=== PATIENT | male | born 1940 | race Caucasian/White ===

== ENCOUNTER 2017-03-05 11:23 | Emergency (ER) | payer OTHER ==
[~2017-03-05] VITALS: Ht 195.6 cm; Wt 43.1 kg
[2017-03-05 12:17] LABS: EOSINOPHIL (%) 0.4 % (0-5); HEMATOCRIT 35.9 % (38.0-50.0); IMMATURE GRANULOCYTE (%) 0.2 % (0.0-0.7); INSTRUMENT ABS NEUTROPHIL CT 2.8 K/uL; LYMPHOCYTE COUNT 1.5 K/uL (1.0-2.8); MCH 31.3 PG (29.0-34.0); MCHC 33.7 G/DL (30.0-36.0); MEAN PLAT.VOLUME 10.7 uM^3 (9.0-12.4); MONOCYTE (%) 14.2 % (3-12); MONOCYTE COUNT 0.7 K/uL (0-0.8); NEUTROPHIL (%) 54.8 % (45-76); NEUTROPHIL COUNT 2.8 K/uL (1.8-6.4); PLATELET COUNT 180 K/uL (156-360); RBC DIS.WIDTH-CV 13.3 % (11.8-14.6); RBC DIS.WIDTH-SD 45.5 % (39-53); RED BLOOD COUNT 3.86 M/uL (4.00-5.50); WHITE BLOOD COUNT 5.1 K/uL (4.1-10.2)
[2017-03-05 12:32] LABS: CHLORIDE 108 mEq/L (99-109); SODIUM 144 mEq/L (136-147)
[2017-03-05 12:34] LABS: GLUCOSE 84 mg/dL (70-99)
[2017-03-05 12:35] LABS: ANION GAP 11 MEQ/L (2-14)
[2017-03-05 12:38] LABS: UREA NITROGEN (BUN) 26 mg/dL (9-23)
[2017-03-05 12:41] LABS: GFR ESTIMATE (CALCULATED) 57 mL/min/
[2017-03-05 14:19] LABS: ADD MIUA? YES; BILIRUBIN NEGATIVE; BLOOD MODERATE; COLOR YELLOW ((YELLOW)); GLUCOSE (STRIP) NEGATIVE; KETONES 20; LEUKOCYTES NEGATIVE; NITRITE NEGATIVE; PROTEIN (STRIP) NEGATIVE; SPECIFIC GRAVITY 1.015 (1.000-1.030); UROBILINOGEN 0.2 MG/DL (0.2-1.0)
[2017-03-05 14:36] LABS: BACTERIA NONE SEEN /HPF; EPITHELIAL CELLS NONE SEEN /HPF; MUCUS TRACE /LPF; RED BLOOD CELLS 20-30 /HPF (0-5); WHITE BLOOD CELLS 0-5 /HPF (0-5)
[2017-03-05] MEDS ORDERED: KEFLEX500 MG PO (16:27)
[2017-03-05 21:21] VITALS: BP 112/70
== END 2017-03-05 21:23 | disposition home or self-care (01) ==
LOC: EME 11:23
PROVIDERS: Emergency Medicine
DX: F03.90 Unspecified dementia, unspecified severity, without behavioral disturbance, psychotic disturbance, mood disturbance, and anxiety (principal); L03.115 Cellulitis of right lower limb; R41.0 Disorientation, unspecified; R45.1 Restlessness and agitation; Z88.0 Allergy status to penicillin
CPT/HCPCS: 80048; 81003; 85025; 90839; 99281; 99285; J1630; J2060

== ENCOUNTER 2017-03-18 12:48 | Emergency (ER) | payer OTHER ==
[~2017-03-18] VITALS: Ht 182.9 cm; Wt 61.3 kg
[~2017-03-18 12:48] MED LIST: KEFLEX500 MG PO
[2017-03-18 14:49] LABS: EOSINOPHIL (%) 1.6 % (0-5); EOSINOPHIL COUNT 0.1 K/uL (0-0.3); HEMATOCRIT 41.6 % (38.0-50.0); IMMATURE GRANULOCYTE (%) 0.4 % (0.0-0.7); LYMPHOCYTE COUNT 1.4 K/uL (1.0-2.8); MCH 31.5 PG (29.0-34.0); MCHC 32.5 G/DL (30.0-36.0); MEAN PLAT.VOLUME 11.5 uM^3 (9.0-12.4); MONOCYTE (%) 10.7 % (3-12); MONOCYTE COUNT 0.6 K/uL (0-0.8); NEUTROPHIL (%) 59.4 % (45-76); PLATELET COUNT 167 K/uL (156-360); RBC DIS.WIDTH-CV 13.6 % (11.8-14.6); RBC DIS.WIDTH-SD 48.6 % (39-53); RED BLOOD COUNT 4.29 M/uL (4.00-5.50); WHITE BLOOD COUNT 5.1 K/uL (4.1-10.2)
[2017-03-18 14:56] LABS: CHLORIDE 113 mEq/L (99-109); POTASSIUM 4.7 mEq/L (3.7-5.4); SODIUM 151 mEq/L (136-147)
[2017-03-18 14:58] LABS: GLUCOSE 100 mg/dL (70-99)
[2017-03-18 14:59] LABS: ANION GAP 10 MEQ/L (2-14)
[2017-03-18 15:02] LABS: GFR ESTIMATE (CALCULATED) > 59 mL/min/
[2017-03-18 15:03] LABS: UREA NITROGEN (BUN) 31 mg/dL (9-23)
[2017-03-18 16:13] LABS: ADD MIUA? YES; BILIRUBIN NEGATIVE; BLOOD SMALL; COLOR YELLOW ((YELLOW)); GLUCOSE (STRIP) NEGATIVE; KETONES NEGATIVE; LEUKOCYTES NEGATIVE; NITRITE NEGATIVE; PROTEIN (STRIP) NEGATIVE; SPECIFIC GRAVITY 1.018 (1.000-1.030); UROBILINOGEN 0.2 MG/DL (0.2-1.0)
[2017-03-18 16:29] LABS: BACTERIA NONE SEEN /HPF; EPITHELIAL CELLS NONE SEEN /HPF; MUCUS TRACE /LPF; RED BLOOD CELLS 20-30 /HPF (0-5); WHITE BLOOD CELLS 0-5 /HPF (0-5)
[2017-03-18 21:04] VITALS: BP 96/72
== END 2017-03-18 21:07 | disposition home or self-care (01) ==
LOC: EME 12:48
PROVIDERS: Emergency Medicine
DX: R41.82 Altered mental status, unspecified (principal); F03.90 Unspecified dementia, unspecified severity, without behavioral disturbance, psychotic disturbance, mood disturbance, and anxiety; Z88.0 Allergy status to penicillin
CPT/HCPCS: 70450; 71010; 80048; 81003; 85025; 93005; 99281; 99285; J1630; J2060

== ENCOUNTER 2017-03-30 07:59 | Inpatient (IN) | payer OTHER ==
[~2017-03-30] VITALS: Ht 182.9 cm; Wt 56.7 kg
[2017-03-30 08:41] LABS: EOSINOPHIL (%) 0.4 % (0-5); HEMATOCRIT 45.3 % (38.0-50.0); IMMATURE GRANULOCYTE (%) 0.1 % (0.0-0.7); INSTRUMENT ABS NEUTROPHIL CT 5.3 K/uL; LYMPHOCYTE COUNT 1.5 K/uL (1.0-2.8); MCH 31.4 PG (29.0-34.0); MCHC 31.8 G/DL (30.0-36.0); MCV 98.9 FL (86-99); MEAN PLAT.VOLUME 12.4 uM^3 (9.0-12.4); MONOCYTE (%) 8.7 % (3-12); MONOCYTE COUNT 0.7 K/uL (0-0.8); NEUTROPHIL (%) 70.2 % (45-76); NEUTROPHIL COUNT 5.3 K/uL (1.8-6.4); PLATELET COUNT 149 K/uL (156-360); RBC DIS.WIDTH-CV 14.1 % (11.8-14.6); RBC DIS.WIDTH-SD 51.3 % (39-53); RED BLOOD COUNT 4.58 M/uL (4.00-5.50); WHITE BLOOD COUNT 7.6 K/uL (4.1-10.2)
[2017-03-30 08:52] LABS: ADD MIUA? YES; BILIRUBIN NEGATIVE; BLOOD MODERATE; COLOR YELLOW ((YELLOW)); GLUCOSE (STRIP) NEGATIVE; KETONES 5; LEUKOCYTES NEGATIVE; NITRITE NEGATIVE; PROTEIN (STRIP) NEGATIVE; SPECIFIC GRAVITY 1.019 (1.000-1.030); UROBILINOGEN 0.2 MG/DL (0.2-1.0)
[2017-03-30] MEDS ORDERED: LASIX20 MG PO (08:52)
[2017-03-30] MEDS ORDERED: ATIVAN0.5 MG PO (08:53)
[2017-03-30] MEDS ORDERED: TRAZODONE HCL50 MG PO (08:53)
[2017-03-30] MEDS ORDERED: SEROQUEL12.5 MG PO (08:54)
[2017-03-30 08:59] LABS: BACTERIA NONE SEEN /HPF; EPITHELIAL CELLS RARE /HPF; MUCUS TRACE /LPF; RED BLOOD CELLS NONE SEEN /HPF (0-5); WHITE BLOOD CELLS 0-5 /HPF (0-5)
[2017-03-30 09:16] LABS: CHLORIDE 125 MEQ/L (99-109); GFR ESTIMATE (CALCULATED) 26 mL/min/ (58.99-99999); GLUCOSE 123 mg/dL (70-99); POTASSIUM 4.2 MEQ/L (3.7-5.4); SAMPLE HEMOLYSIS CHECK 0; SAMPLE ICTERIC CHECK 0; SAMPLE LIPEMIA CHECK 0; UREA NITROGEN (BUN) 78 mg/dL (9-23)
[2017-03-30 09:17] LABS: ANION GAP 13 MEQ/L (2-14)
[2017-03-30 09:18] LABS: SODIUM 168 MEQ/L (136-147)
[2017-03-30 09:41] LABS: TROP-I INTERPRETATION NEGATIVE; TROPONIN-I 0.01 ng/mL (0.0-0.30)
[2017-03-30] MEDS ORDERED: DESYREL100 MG PO (10:26)
[2017-03-30 16:32] VITALS: BP 132/70
[2017-03-30 20:17] VITALS: BP 126/73
[2017-03-31 00:11] VITALS: BP 137/60
[2017-03-31 04:17] VITALS: BP 125/65
[2017-03-31 07:35] LABS: ANION GAP 11 MEQ/L (2-14); CHLORIDE 123 MEQ/L (99-109); GLUCOSE 118 mg/dL (70-99); SAMPLE HEMOLYSIS CHECK 0; SAMPLE ICTERIC CHECK 0; SAMPLE LIPEMIA CHECK 0; UREA NITROGEN (BUN) 59 mg/dL (9-23)
[2017-03-31 07:37] LABS: GFR ESTIMATE (CALCULATED) 39 mL/min/ (58.99-99999); SODIUM 163 MEQ/L (136-147)
[2017-03-31 12:29] VITALS: BP 107/62
[2017-03-31 12:31] VITALS: BP 129/84
[2017-04-01 07:42] VITALS: BP 121/63
[2017-04-01 10:06] LABS: HEMATOCRIT 38.9 % (38.0-50.0); MCH 31.8 PG (29.0-34.0); MCHC 32.6 G/DL (30.0-36.0); MCV 97.3 FL (86-99); MEAN PLAT.VOLUME 12.6 uM^3 (9.0-12.4); PLATELET COUNT 109 K/uL (156-360); RBC DIS.WIDTH-CV 13.8 % (11.8-14.6); RBC DIS.WIDTH-SD 48.9 % (39-53); WHITE BLOOD COUNT 5.3 K/uL (4.1-10.2)
[2017-04-01 10:25] LABS: ANION GAP 6 MEQ/L (2-14); CHLORIDE 119 MEQ/L (99-109); POTASSIUM 3.5 MEQ/L (3.7-5.4); SAMPLE HEMOLYSIS CHECK 0; SAMPLE ICTERIC CHECK 0; SAMPLE LIPEMIA CHECK 0; UREA NITROGEN (BUN) 37 mg/dL (9-23)
[2017-04-01 10:26] LABS: GFR ESTIMATE (CALCULATED) 57 mL/min/ (58.99-99999); GLUCOSE 83 mg/dL (70-99); SODIUM 153 MEQ/L (136-147)
[2017-04-01 16:21] VITALS: BP 127/62
[2017-04-01 23:48] VITALS: BP 142/75
[2017-04-02 06:53] LABS: ANION GAP 7 MEQ/L (2-14); CHLORIDE 114 MEQ/L (99-109); GFR ESTIMATE (CALCULATED) > 59 mL/min/ (58.99-99999); POTASSIUM 3.9 MEQ/L (3.7-5.4); SAMPLE HEMOLYSIS CHECK 0; SAMPLE ICTERIC CHECK 0; SAMPLE LIPEMIA CHECK 0; SODIUM 146 MEQ/L (136-147); UREA NITROGEN (BUN) 24 mg/dL (9-23)
[2017-04-02 06:57] LABS: GLUCOSE 107 mg/dL (70-99)
[2017-04-02 08:17] VITALS: BP 105/70
[2017-04-03 00:12] VITALS: BP 146/67
[2017-04-03 07:11] VITALS: BP 152/73
[2017-04-03 15:01] VITALS: BP 148/76
[2017-04-04 00:36] VITALS: BP 130/74
[2017-04-04 07:38] VITALS: BP 130/84
[2017-04-04] MEDS ORDERED: MORPHINE CON20 MG/M1 PO (09:26)
[2017-04-04 16:05] VITALS: BP 132/86
[2017-04-04 23:25] VITALS: BP 142/83
[2017-04-05 08:00] VITALS: BP 112/69
== END 2017-04-05 18:45 | disposition hospice, home (50) | DRG 683 ==
LOC: EME 07:59 → 5SOUTH 09:40 → EDOF 09:40 → ENRESERV 09:45 → 5SOUTH 11:07
PROVIDERS: Emergency Medicine; Family Medicine; Internal Medicine
DX: N17.9 Acute kidney failure, unspecified (principal); E87.0 Hyperosmolality and hypernatremia; E86.0 Dehydration; F03.90 Unspecified dementia, unspecified severity, without behavioral disturbance, psychotic disturbance, mood disturbance, and anxiety; E87.6 Hypokalemia; Z51.5 Encounter for palliative care; Z66 Do not resuscitate; M62.50 Muscle wasting and atrophy, not elsewhere classified, unspecified site; R62.7 Adult failure to thrive; Z68.1 Body mass index [BMI] 19.9 or less, adult
CPT/HCPCS: 71010; 76770; 80048; 81003; 84484; 85025; 85027; 99281; 99285; J1630; J1644; J2060; J2270; J7042